=== PATIENT | female | born 1965 | race Caucasian/White ===

== ENCOUNTER 2017-01-23 12:02 | Emergency (ER) | payer BC, MEDICAID ==
[2017-01-23 12:14] VITALS: BP 119/82; PULSE 58; RESP 16; TEMP 97.7; O2SAT 96
[2017-01-23] MEDS ORDERED: ONDANSETRON 4 MG/2 ML VIAL ONE (12:31)
[2017-01-23] MEDS ORDERED: fentaNYL 100 MCG/2 ML INJ ONE ×2 (12:35→12:36)
[2017-01-23] MEDS ORDERED: MIDAZOLAM 2 MG/2 ML VIAL ONE (12:35)
[2017-01-23] MEDS ORDERED: BUPIVACAINE 0.5% 30 ML SDV ONE (12:45)
[2017-01-23] MEDS ORDERED: LIDOCAINE 1% 300 MG/30 ML SDV ONE (12:45)
--- NOTE | 2017-01-23 12:57 | EDPHY ---
H & P HPI/ROS: CHIEF COMPLAINT: Left toe pain History by patient HISTORY OF PRESENT ILLNESS: 52-year-old woman complains of pain and bruising on her left foot after a heavy metal chair fell on it 3 days ago while she was vacuuming. She is able to ambulate but it continues to hurt when she walks. Feels slightly numb. She has been taking Tylenol with some relief. REVIEW OF SYSTEMS: As in HPI, and all other systems reviewed and are negative Smoking Status: Never smoked Constitutional: Initial Vital Signs Temperature (C) 36.5 C 01/23/17 12:09 Heart Rate 58 L 01/23/17 12:09 Respiratory Rate 16 01/23/17 12:09 Blood Pressure 119/82 H 01/23/17 12:09 O2 Sat (%) 96 01/23/17 12:09 O2 Delivery Mode Room Air Allergies/Adverse Reactions: No Known Allergies Allergy (Verified 01/23/17 12:07) Home Medications: Medication Instructions Recorded Testosterone 01/23/17 MDM/Departure - [facility] Imaging Results: Imaging Impressions Foot X-Ray 01/23/17 12:16 Impression: 1. Nondisplaced oblique fracture mid shaft left third toe proximal phalanx. ED Course/Re-evaluation: 52-year-old woman presents after chair fell on her left foot. X-ray reveals nondisplaced fracture of the proximal 3rd phalanx. Patient was toyin taped and placed in a hard-soled shoe. We discussed home care and she can follow up with her primary care physician Dr. Campbell. - Depart Disposition: Home, Routine, Self-Care Clinical Impression: Nondisplaced fracture of proximal phalanx of left lesser toe(s), initial encounter for closed fracture Condition: Good Instructions: Toe Fracture (ED) Additional Instructions: You were seen by Dr. Deepa Coles today. You may bear weight on her toes you can stand. Keep it toyin-taped. Wear the hard-soled shoe for support until it is healed. He may take ibuprofen 600 mg 4 times daily plus Tylenol 4 times daily if needed. Continue to ice it. Follow up with your primary care physician. Return for any worsening or new concerns. Referrals: Stanislav Campbell DO [Primary Care Provider] - As per Instructions
== END 2017-01-23 13:00 | disposition home or self-care (01) ==
LOC: CED 12:02
DX: S92.515A Nondisplaced fracture of proximal phalanx of left lesser toe(s), initial encounter for closed fracture (principal); W20.8XXA Other cause of strike by thrown, projected or falling object, initial encounter
CPT/HCPCS: 73630-PO; J2250; J2405; J3010; L3260